=== PATIENT | male | born 1945 | race Native Hawaiian/Other Pacific Islander ===

== ENCOUNTER 2019-06-22 16:48 | Emergency (ER) | payer OTHER ==
[~2019-06-22] VITALS: Ht 167.6 cm; Wt 62.1 kg
[2019-06-22 16:58] VITALS: TEMP 97.3
[2019-06-22 17:02] LABS: PLATELET COUNT 121 K/uL (142-355)
[2019-06-22 17:12] LABS: PARTIAL THROMBOPLASTIN TIME 23.8 SECONDS (24.5-33.6)
[2019-06-22 17:15] LABS: POTASSIUM 4.9 mmol/L (3.6-5.2); SODIUM 138 mmol/L (136-145)
[2019-06-22 21:32] VITALS: BP 140/64
== END 2019-06-22 21:35 | disposition short-term general hospital (02) ==
LOC: ED 16:48
PROVIDERS: Family Medicine
DX: G46.0 Middle cerebral artery syndrome (principal); Z86.73 Personal history of transient ischemic attack (TIA), and cerebral infarction without residual deficits; F17.210 Nicotine dependence, cigarettes, uncomplicated; R00.1 Bradycardia, unspecified
CPT/HCPCS: 80053; 84484; 85027; 85610; 85730; 93005; 99285

== ENCOUNTER 2021-01-14 09:40 | Outpatient (CLI) | payer OTHER | END 2021-01-14 21:19 | disposition home or self-care (01) | LOC: RESP 09:40 | PROVIDERS: ATTEND Internal Medicine Cardiovascular Disease | DX: I42.8 Other cardiomyopathies (principal); I10 Essential (primary) hypertension; I25.10 Atherosclerotic heart disease of native coronary artery without angina pectoris ==

== ENCOUNTER 2021-07-13 10:20 | Outpatient (CLI) | payer OTHER | END 2021-07-13 20:05 | disposition home or self-care (01) | LOC: US 10:20 | PROVIDERS: ATTEND Internal Medicine Cardiovascular Disease | DX: R09.89 Other specified symptoms and signs involving the circulatory and respiratory systems (principal) ==

== ENCOUNTER 2022-02-24 12:59 | Emergency (ER) | payer OTHER ==
[~2022-02-24] VITALS: Ht 167.6 cm; Wt 62.1 kg
[2022-02-24 13:03] VITALS: BP 140/70; TEMP 98
== END 2022-02-24 14:10 | disposition home or self-care (01) ==
LOC: ED 12:59
PROC: 2W3DX1Z Immobilization of Left Lower Arm using Splint (ICD-10-PCS; principal; 2022-02-24)
DX: S52.532A Colles' fracture of left radius, initial encounter for closed fracture (principal); S52.615A Nondisplaced fracture of left ulna styloid process, initial encounter for closed fracture; W01.0XXA Fall on same level from slipping, tripping and stumbling without subsequent striking against object, initial encounter; Y92.89 Other specified places as the place of occurrence of the external cause
CPT/HCPCS: 99282